=== PATIENT | male | born 1955 | race American Indian/Alaskan Native ===

== ENCOUNTER 2017-09-11 11:53 | Emergency (ER) | payer MEDICARE ==
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
[2017-09-11 12:56] LABS: Basophils # (Auto) 0.1 K/mm3 (0.0-0.1); Basophils % (Auto) 1.2 % (0.0-1.8); Eosinophils # (Auto) 0.2 K/mm3 (0.0-0.4); Hematocrit 42.6 % (35.5-45.6); Hemoglobin 14.5 gm/dl (11.8-15.2); Lymphocytes # (Auto) 1.2 K/mm3 (1.2-5.4); Lymphocytes % (Auto) 24.8 % (13.4-35.0); Mean Corpuscular HGB Conc 34 % (32-34); Mean Corpuscular Hemoglobin 33 pg (28-32); Mean Corpuscular Volume 96 fl (84-94); Monocytes # (Auto) 0.4 K/mm3 (0.0-0.8); Monocytes % (Auto) 8.4 % (0.0-7.3); Platelet Count 155 K/mm3 (140-440); Red Blood Count 4.42 M/mm3 (3.65-5.03); Red Cell Distribution Width 14.3 % (13.2-15.2)
[2017-09-11 13:06] LABS: INR 1.13 (0.87-1.13)
[2017-09-11 13:19] LABS: Alanine Aminotransferase 34 units/L (7-56); Albumin 4.2 g/dL (3.9-5); BUN/Creatinine Ratio 23; Blood Urea Nitrogen 18 mg/dL (9-20); Calcium 9.7 mg/dL (8.4-10.2); Hemolysis Index 13
[2017-09-11] MEDS ORDERED: COUMADIN PO ONE (15:17)
[2017-09-11 15:30] VITALS: BP 121/93
== END 2017-09-11 15:24 | disposition home or self-care (01) ==
LOC: ED 11:53
DX: R79.1 Abnormal coagulation profile (principal); F31.9 Bipolar disorder, unspecified; I10 Essential (primary) hypertension; F17.200 Nicotine dependence, unspecified, uncomplicated; Z86.718 Personal history of other venous thrombosis and embolism
CPT/HCPCS: 36415; 80053; 85025; 85610; 85730; 99284

== ENCOUNTER 2017-09-14 03:47 | Emergency (ER) | payer MEDICARE ==
[2017-09-14 04:39] LABS: Basophils % (Auto) 0.5 % (0.0-1.8); Eosinophils # (Auto) 0.1 K/mm3 (0.0-0.4); Eosinophils % (Auto) 1.3 % (0.0-4.3); Hematocrit 41.8 % (35.5-45.6); Hemoglobin 14.5 gm/dl (11.8-15.2); Lymphocytes # (Auto) 1.2 K/mm3 (1.2-5.4); Lymphocytes % (Auto) 15.8 % (13.4-35.0); Mean Corpuscular HGB Conc 35 % (32-34); Mean Corpuscular Hemoglobin 34 pg (28-32); Mean Corpuscular Volume 97 fl (84-94); Monocytes # (Auto) 0.4 K/mm3 (0.0-0.8); Monocytes % (Auto) 5.6 % (0.0-7.3); Platelet Count 155 K/mm3 (140-440); Red Blood Count 4.34 M/mm3 (3.65-5.03); Red Cell Distribution Width 14.2 % (13.2-15.2)
[2017-09-14 04:55] LABS: Alanine Aminotransferase 33 units/L (7-56); Albumin 4.6 g/dL (3.9-5); BUN/Creatinine Ratio 19; Blood Urea Nitrogen 17 mg/dL (9-20); Calcium 9.4 mg/dL (8.4-10.2); Hemolysis Index 7
[2017-09-14 04:59] LABS: INR 1.06 (0.87-1.13)
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
[2017-09-14 06:23] LABS: Amphetamine Screen,Urine PRESUMPTIVE NEGATIVE; Benzodiazepines Screen,Urine PRESUMPTIVE NEGATIVE; Cannabinoid Screen,Urine PRESUMPTIVE NEGATIVE; Cocaine Screen,Urine PRESUMPTIVE NEGATIVE; Methadone Screen,Urine PRESUMPTIVE NEGATIVE; Opiate Screen,Urine PRESUMPTIVE NEGATIVE
[2017-09-14 06:25] LABS: Bilirubin,Urine NEG (Negative); Blood,Urine SM (Negative); Calcium Oxalate Crystals,Urine 1+; Color,Urine Yellow (Yellow); Hyaline Casts,Urine 21 /LPF; Mucus,Urine FEW /HPF; Urobilinogen,Urine < 2.0 mg/dL (<2.0)
--- NOTE | 2017-09-14 14:01 | Consultation ---
History of Present Illness - Reason for Consult Consult date: 09/14/17 Reason for consult: Mental Health Evaluation Requesting physician: GERALD GIL - Chief Complaint Chief complaint: "I have seizure with blackouts" - History of Present Psychiatric Illness 62 yo white male presenting to the ER for "blacking out." Today the patient is calm and cooperative during the assessment. He was brought to the ER after experiencing a "black out" per the patient. He was not able to describe exactly what happen prior to his admission to the hospital. He stated that he was dx with "partial complex seizure with black outs" several yrs ago by a neurologist. He stated that he isn't aware of his actions when he has an episode. He stated that he took medications (Trileptal and Zonisamide) for 7 years without having an seizure, so he abruptly stopped. He stated that he had a "black out" 2 years later, so he started taking his medications again. He stated that he has not seen a neurologist in "awhile." He stated that he is placed in a mental health facility after having an episode because of his actions. He stated being prescribed Geodon for his mood. He denies having a mood /psychotic do. He stated that his "black outs" possibly "mimic" psychosis or syada. He denies SI/HI's and AVH's. He denies erratic sleep and a poor appetite. He denies recreational drug use and alcohol consumption (etoh). He stated that he would like a referral to a neurologist locally. The patient just moved to the [place] area a week ago. Medications and Allergies Allergies Allergy/AdvReac Type Severity Reaction Status Date / Time No Known Allergies Allergy Unverified 09/11/17 12:22 Past psychiatric history - Past Medical History Past Medical History: seizures (Partial Complex) Past Surgical History: No surgical history - past Psychiatric treatment and history psychiatric treatment history: Was a patient as [employer] most recently. Denies a fam psy hx. - Social History Social history: other (Reside at a senior care) Mental Status Exam - Vital signs Last Vital Signs Temp 98.2 F 09/14/17 10:21 Pulse 73 09/14/17 10:21 Resp 18 09/14/17 10:21 BP 110/75 09/14/17 10:21 Pulse Ox 97 07/06/18 10:21 - Exam Narrative exam: MSE: Appearance: calm, cooperative Behavior: regular eye contact Speech: regular rate and tone Mood: "okay" Affect: congruent to mood Thought Process: linear Thought Content: denies SI/HI's and AVH's Motor Activity: sitting up in bed Cognition: A/O x 3 Insight: appropriate Judgment: appropriate Results Result Diagrams: 09/14/17 04:17 09/14/17 04:17 Abnormal lab results 09/14/17 09/14/17 09/14/17 Range/Units 04:17 04:17 04:17 MCV 97 H (84-94) fl MCH 34 H (28-32) pg MCHC 35 H (32-34) % Seg Neutrophils % 76.8 H (40.0-70.0) % Carbon Dioxide 20 L (22-30) mmol/L Glucose 143 H (75-100) mg/dL Salicylates < 0.3 L (2.8-20.0) mg/dL Acetaminophen (10.0-30.0) ug/mL 09/14/17 Range/Units 04:17 MCV (84-94) fl MCH (28-32) pg MCHC (32-34) % Seg Neutrophils % (40.0-70.0) % Carbon Dioxide (22-30) mmol/L Glucose (75-100) mg/dL Salicylates (2.8-20.0) mg/dL Acetaminophen < 5.0 L (10.0-30.0) ug/mL All other labs normal. Assessment and Plan Assessment and plan: Impression: No overt psychosis with this patient. Hx of Partial Complex Seizures per the patient. Today the patient is calm and cooperative during the assessment. Recommendation/Plan: The patient can follow up with a local neurologist.
--- NOTE | 2017-09-14 16:16 | Emergency Department Report ---
Blank Doc - Documentation Documentation: Patient was seen and evaluated by mental health. Agree the patient does not meet 1013 criteria since he is not suicidal or homicidal. Pt will be discharged home back to [place] as per case management consult and outpatient for follow-up with a neurologist will be encouraged for his seizure disorder.
[2017-09-14 17:13] VITALS: BP 112/78
== END 2017-09-14 16:40 | disposition other institution (70) ==
LOC: EEVIPCON 03:47 → ED 03:47
DX: F31.9 Bipolar disorder, unspecified (principal); I10 Essential (primary) hypertension; Z86.718 Personal history of other venous thrombosis and embolism
CPT/HCPCS: 36415; 80053; 80307; 81001; 85025; 85610; 99283; G0480; 80320